=== PATIENT | female | born 1955 | race Two or more races ===

== ENCOUNTER → 2017-05-07 | Outpatient (CLI) | payer BC ==
[2017-05-07 13:49] LABS: Anion Gap 7 mmol/L; Blood Urea Nitrogen 17 mg/dL (7-17); Calcium 9.6 mg/dL (8.4-10.2); Carbon Dioxide 30 mmol/L (22-30); Chloride 104 mmol/L (98-107); Glucose 95 mg/dL (74-99); Non-African American GFR(MDRD) >60 (>60 ml/min/1.73 sqM); Potassium 4.2 mmol/L (3.5-5.1); Sodium 141 mmol/L (137-145)
== END | disposition home or self-care (01) ==
LOC: LABWHC1 13:18
PROVIDERS: ATTEND Internal Medicine Interventional Cardiology
DX: I10 Essential (primary) hypertension (principal)
CPT/HCPCS: 36415; 80048

== ENCOUNTER → 2018-03-17 | Outpatient (CLI) | payer BC ==
[2018-03-17 14:01] LABS: Basophils % (A) 0 %; Eosinophils # (A) 0.1 k/uL (0-0.7); Eosinophils % (A) 1 %; HCT 45.2 % (34.0-46.0); HGB 15.2 gm/dL (11.4-16.0); Lymphocytes # (A) 1.8 k/uL (1.0-4.8); Lymphocytes % (A) 26 %; MCH 30.1 pg (25.0-35.0); MCHC 33.5 g/dL (31.0-37.0); MCV 89.8 fL (80.0-100.0); Mean Platelet Volume 6.9; Monocytes # (A) 0.3 k/uL (0-1.0); Monocytes % (A) 5 %; Neutrophils # (A) 4.6 k/uL (1.3-7.7); Neutrophils % (A) 67 %; Platelet Count 304 k/uL (150-450); RBC 5.04 m/uL (3.80-5.40); RDW 12.3 % (11.5-15.5); WBC 6.9 k/uL (3.8-10.6)
[2018-03-17 14:16] LABS: ALT 38 U/L (9-52); AST 32 U/L (14-36); Alkaline Phosphatase 120 U/L (38-126); Anion Gap 11 mmol/L; Blood Urea Nitrogen 12 mg/dL (7-17); Calcium 9.8 mg/dL (8.4-10.2); Carbon Dioxide 31 mmol/L (22-30); Chloride 100 mmol/L (98-107); Glucose 101 mg/dL (74-99); Potassium 4.1 mmol/L (3.5-5.1); Sodium 142 mmol/L (137-145); Total Bilirubin 0.5 mg/dL (0.2-1.3); Total Protein 6.9 g/dL (6.3-8.2)
[2018-03-17 14:31] LABS: T4, Free (Free Thyroxine) 1.16 ng/dL (0.78-2.19)
--- NOTE | 2018-03-17 14:37 | XR ---
EXAMINATION TYPE: XR chest 2V DATE OF EXAM: 03/17/2018 COMPARISON: NONE HISTORY: Allergic reaction, lung mass, hypertension, hives TECHNIQUE: Frontal and lateral views of the chest are obtained. FINDINGS: Prominent lung volumes may be indicative of COPD. There is a wedge compression deformity o f the midthoracic spine with loss of height anteriorly of greater than 75%, there may be minimal retr opulsion. The aorta is dense. There is no airspace disease, pneumothorax, or pleural effusion. Retroc ardiac density with central lucency is present. Cardiac mediastinal silhouette, pulmonary vascularity and corwin within normal limits accounting for rotation. IMPRESSION: No acute cardiopulmonary disease. Hiatal hernia. Thoracic compression fracture of indete rminate age. Consider thoracic MRI or CT.
[2018-03-17 16:38] LABS: Erythrocyte Sedimentation Rate 9 mm/hr (0-20)
[2018-03-17 19:46] LABS: Parathyroid Hormone Intact 47.1 pg/mL (14.0-72.0)
[2018-03-17 20:07] LABS: Thyroid Peroxidase Antibodies <28.0 U/mL (0.0-60.0)
[2018-03-18 12:28] LABS: White-Faced Hornet IgE <0.35 kU/L (<0.35); Yellow Jacket IgE Class CLASS 0
[2018-03-18 12:30] LABS: Paper Wasp IgE <0.35 kU/L (<0.35); Paper Wasp IgE Class CLASS 0; Yellow Hornet IgE <0.35 kU/L (<0.35)
[2018-03-19 21:39] LABS: C1 Esterase Inhibitor Fnc Assy > 86 % (> 67)
[2018-03-20 17:08] LABS: C1 Esterase Inhibitor, Protein 56 mg/dL (21-39)
== END ==
LOC: LABWHC1 13:07
PROVIDERS: ATTEND Allergy & Immunology
DX: R91.8 Other nonspecific abnormal finding of lung field (principal); E07.9 Disorder of thyroid, unspecified; M35.9 Systemic involvement of connective tissue, unspecified; R53.83 Other fatigue; K44.9 Diaphragmatic hernia without obstruction or gangrene; M48.54XA Collapsed vertebra, not elsewhere classified, thoracic region, initial encounter for fracture
CPT/HCPCS: 36415; 71046; 80053; 82785; 83970; 84439; 84443; 85025; 85652; 86003; 86038; 86160; 86161; 86162; 86376; 86800

== ENCOUNTER → 2018-12-15 | Outpatient (CLI) | payer BC ==
--- NOTE | 2018-12-18 15:57 | MM ---
Reason for exam: additional evaluation requested from prior study. Last mammogram was performed 2 years and 1 month ago. History: Patient has history of breast cancer at age 44. Reduction of the left breast, 2000. Mastectomy of the right breast, 1999. TRAM Reconstruction of the right breast, 1999. Physical Findings: Nurse Summary: a 0.25 cm palpable lump at the left nipple. MG Diagnostic Mammo LT w CAD CC and MLO view(s) were taken of the left breast. Prior study comparison: November 03, 2016, left breast MG diagnostic mammo LT w CAD. July 07, 2016, left breast MG 3d diag mammo w/cad LT. There are benign-appearing regional round left breast anterior calcifications. No discrete abnormality. These results were verbally communicated with the patient and result sheet given to the patient on 12/15/18. ASSESSMENT: Incomplete: need additional imaging evaluation, BI-RAD 0 RECOMMENDATION: Ultrasound of the left breast. Palpable abnormality.
--- NOTE | 2018-12-18 16:01 | USB ---
History: Patient has history of breast cancer at age 44. Reduction of the left breast, 2000. Mastectomy of the right breast, 2000. TRAM Reconstruction of the right breast, 2000. US Breast Limited LT Left limited breast ultrasound including focal area of concern, retroareolar and axilla demonstrates no cystic or solid lesion seen at the palpable on the nipple. A 0.4 x 0.2 cm oval mixed lesion is seen at 5 o'clock. These results were verbally communicated with the patient and result sheet given to the patient on 12/15/18. ASSESSMENT: Probably benign, BI-RAD 3 RECOMMENDATION: Ultrasound of the left breast in 6 months.
== END ==
LOC: RADMAMWWP 12:55
PROVIDERS: ATTEND Family Medicine
DX: Z85.3 Personal history of malignant neoplasm of breast (principal)
CPT/HCPCS: 77065

== ENCOUNTER → 2019-03-23 | Outpatient (CLI) | payer BC ==
--- NOTE | 2019-03-23 18:19 | CT ---
EXAMINATION TYPE: CT soft tissue neck w con DATE OF EXAM: 03/23/2019 COMPARISON: None HISTORY: Right sided mass under tongue behind jaw bone CT DLP: 291.6 mGycm CONTRAST: Patient injected with 100 mL of Isovue 300. TECHNIQUE: Axial images at 3 mm thick sections. Reconstructed images in the coronal plane and sagitt al plane are reviewed. FINDINGS: Limited CT sections are obtained the lung apices. The lung apices appear clear. CT neck: The torus tubarius and fossa of Rosenmuller are normal. Senior Recruiter spaces are normal. Para nasal sinuses and mastoid air cells are clear. Note is made a left septal deviation. Parotid glands appear normal and symmetrical. Submandibular glands, are normal. Parapharyngeal spac es are normal. No suspicious adenopathy is evident. The hypopharynx appears within normal limits. Vocal cord level appear symmetrical. Subglottic airway is normal. Thyroid as visualized is normal. Osseous structures are normal. Dental amalgam causes beam hardening artifact through the level of the mandible and maxilla. IMPRESSIONS: 1. No suspicious masslike areas identified to account for the right-sided mass under the tongue and j aw bone. Clinical management is recommended.
== END | disposition home or self-care (01) ==
LOC: RADCTMAIN 09:29
PROVIDERS: ATTEND Otolaryngology
DX: R22.1 Localized swelling, mass and lump, neck (principal)
CPT/HCPCS: 70491; Q9967

== ENCOUNTER → 2019-08-25 | Outpatient (CLI) | payer BC | END | disposition home or self-care (01) | LOC: LABWHC1 16:30 | PROVIDERS: ATTEND Otolaryngology | DX: E83.52 Hypercalcemia (principal) | CPT/HCPCS: 36415; 82330 ==

== ENCOUNTER → 2019-11-18 | Outpatient (CLI) | payer BC ==
--- NOTE | 2019-11-18 14:25 | US ---
EXAMINATION TYPE: US carotid duplex BILAT DATE OF EXAM: 11/18/2019 COMPARISON: NONE CLINICAL HISTORY: R22.1 PULSATILE NECK MASS. Pulsatile mass right clavicle EXAM MEASUREMENTS: RIGHT: Peak Systolic Velocity (PSV) cm/sec ----- Right CCA: 89.0 ----- Right ICA: 89.0 ----- Right ECA: 102 ICA/CCA ratio: 1.0 RIGHT: End Diastole cm/sec ----- Right CCA: 24.5 ----- Right ICA: 26.5 ----- Right ECA: 12.2 LEFT: Peak Systolic Velocity (PSV) cm/sec ----- Left CCA: 95.8 ----- Left ICA: 152 ----- Left ECA: 92.7 ICA/CCA ratio: 1.6 LEFT: End Diastole cm/sec ----- Left CCA: 21.1 ----- Left ICA: 39.4 ----- Left ECA: 11.5 VERTEBRALS (direction of flow): Right Vertebral: Antegrade Left Vertebral: Antegrade Rhythm: Normal No significant stenosis seen, left ICA tortuous There is some mild intimal thickening to the right carotid system. Mild intimal thickening is present on the left. There is tortuosity causing turbulent flow. Flow-limiting stenosis however is not ident ified. IMPRESSION: 1. There is intimal thickening without significant flow-limiting stenosis. 2. There is elevation of the left internal carotid artery which may be related to the tortuosity. Criteria for Assigning % of Stenosis / Diameter reduction (Estimation based on the indirect measurements of the internal carotid artery velocities (ICA PSV). 1. Normal (no stenosis)=ICA PSV < 125 cm/s: ratio < 2.0: ICA EDV<40 cm/s. 2. Less than 50% stenosis=ICA PSV < 125 cm/s: ratio < 2.0: ICA EDV<40 cm/s. 3. 50 to 69% stenosis=ICA PSV of 125 to 230 cm/s: ration 2.0 ? 4.0: ICA EDV 40-100 cm/s. 4. Greater than 70% stenosis to near occlusion= ICA PSV > 230 cm/s: ratio > 4.0: ICA EDV > 100 cm/s. 5. Near occlusion= ICA PSV velocities may be low or undetectable: variable ratio and ICA EDV. 6. Total occlusion=unable to detect flow.
--- NOTE | 2019-11-18 14:29 | US ---
EXAMINATION TYPE: US thyroid st tissue head/neck DATE OF EXAM: 11/18/2019 COMPARISON: NONE CLINICAL HISTORY: R22.1 RULSATILE NECK MASS. Pt states pulsatile mass at right clavicle At pt's right clavicle where pt has pulsatile mass, the area appears to be the bifurcation of the r ight CCA and right subclavian artery IMPRESSION: No aneurysm or mass identified.
[2019-11-18 14:58] LABS: ALT 17 U/L (4-34); AST 29 U/L (14-36); African American GFR (CKD) >90 (>60 ml/min/1.73 sqM); Albumin 3.9 g/dL (3.5-5.0); Alkaline Phosphatase 67 U/L (38-126); Anion Gap 5 mmol/L; Blood Urea Nitrogen 12 mg/dL (7-17); Calcium 9.3 mg/dL (8.4-10.2); Carbon Dioxide 30 mmol/L (22-30); Chloride 104 mmol/L (98-107); Glucose 101 mg/dL (74-99); Non-African American GFR(CKD) >90 (>60 ml/min/1.73 sqM); Potassium 4.2 mmol/L (3.5-5.1); Sodium 139 mmol/L (137-145); Total Bilirubin 0.6 mg/dL (0.2-1.3); Total Protein 6.4 g/dL (6.3-8.2)
== END ==
LOC: RADUSWWP 13:29
PROVIDERS: ATTEND Internal Medicine Endocrinology, Diabetes & Metabolism
DX: R93.89 Abnormal findings on diagnostic imaging of other specified body structures (principal); R22.1 Localized swelling, mass and lump, neck
CPT/HCPCS: 36415; 76536; 80053; 82306; 83970; 84443; 93880

== ENCOUNTER → 2019-11-25 | Outpatient (CLI) | payer BC ==
[2019-11-25 18:02] LABS: Basophils % (A) 0 %; Eosinophils # (A) 0.1 k/uL (0-0.7); Eosinophils % (A) 2 %; HCT 45.4 % (34.0-46.0); Lymphocytes # (A) 1.9 k/uL (1.0-4.8); Lymphocytes % (A) 41 %; MCHC 33.1 g/dL (31.0-37.0); MCV 90.8 fL (80.0-100.0); Mean Platelet Volume 8.2; Monocytes # (A) 0.2 k/uL (0-1.0); Monocytes % (A) 5 %; Neutrophils # (A) 2.3 k/uL (1.3-7.7); Neutrophils % (A) 51 %; Platelet Count 228 k/uL (150-450); RDW 13.2 % (11.5-15.5); WBC 4.6 k/uL (3.8-10.6)
[2019-11-25 22:30] LABS: Erythrocyte Sedimentation Rate 2 mm/hr (0-20)
[2019-11-25 23:17] LABS: Protein, Total 6.5 g/dL (6.2-8.2)
[2019-11-25 23:20] LABS: African American GFR (CKD) 90.3 (60.0-200.0); Non-African American GFR(CKD) 77.9 (60.0-200.0)
[2019-11-26 00:14] LABS: Hemoglobin A1C 6.1 % (4.0-6.0)
== END | disposition home or self-care (01) ==
LOC: LABWHC1 16:42
PROVIDERS: ATTEND Physician Assistant
DX: G62.9 Polyneuropathy, unspecified (principal)
CPT/HCPCS: 36415; 82542; 82565; 82607; 83036; 84165; 84630; 85025; 85652; 86038; 86255; 86334; 86780

== ENCOUNTER → 2019-11-27 | Outpatient (CLI) | payer BC | END | disposition home or self-care (01) | LOC: LABMAIN 12:24 | PROVIDERS: ATTEND Psychiatry & Neurology Neurology | DX: Z53.9 Procedure and treatment not carried out, unspecified reason (principal) ==

== ENCOUNTER → 2019-12-29 | Outpatient (CLI) | payer BC ==
--- NOTE | 2019-12-29 14:49 | MM ---
Reason for exam: additional evaluation requested from prior study. Last mammogram was performed 1 year ago. History: Patient has history of breast cancer at age 44. Reduction of the left breast, 2000. Mastectomy of the right breast, 1999. TRAM Reconstruction of the right breast, 1999. Physical Findings: Nurse did not find any significant physical abnormalities on exam. MG Diagnostic Mammo LT w CAD CC and MLO view(s) were taken of the left breast. Prior study comparison: December 15, 2018, left breast MG diagnostic mammo LT w CAD. November 03, 2016, left breast MG diagnostic mammo LT w CAD. The breast tissue is heterogeneously dense. This may lower the sensitivity of mammography. No suspicious abnormality. No significant new findings when compared with previous films. These results were verbally communicated with the patient and result sheet given to the patient on 12/29/19. ASSESSMENT: Incomplete: need additional imaging evaluation, BI-RAD 0 RECOMMENDATION: Ultrasound of the left breast. (at 5 o'clock as recommended on the prior ultrasound)
--- NOTE | 2019-12-29 14:51 | USB ---
Reason for exam: additional evaluation requested from abnormal screening. History: Patient has history of breast cancer at age 44. Reduction of the left breast, 2000. Mastectomy of the right breast, 2000. TRAM Reconstruction of the right breast, 2000. US Breast Limited LT Left limited breast ultrasound including focal area of concern, retroareolar and axilla demonstrates no cystic or solid lesion seen. The previous cluster of cysts at 5 o'clock has resolved. No cystic or solid mass seen. Mild ductal ectasia. These results were verbally communicated with the patient and result sheet given to the patient on 12/29/19. ASSESSMENT: Negative, BI-RAD 1 RECOMMENDATION: Routine screening mammogram of the left breast in 1 year.
== END | disposition home or self-care (01) ==
LOC: RADMAMWWP 13:10
PROVIDERS: ATTEND Family Medicine
DX: N64.9 Disorder of breast, unspecified (principal); R92.8 Other abnormal and inconclusive findings on diagnostic imaging of breast
CPT/HCPCS: 77065

== ENCOUNTER → 2020-07-02 | Outpatient (CLI) | payer MEDICARE ==
[2020-07-03 06:26] LABS: Anti-Smith Ab Interp NEGATIVE (NEGATIVE); Cyclic Citrull Pep IgG Unit <0.5 U/mL; Cyclic Citrullinated Pep IgG NEGATIVE (NEGATIVE); DNA Double-Stranded NEGATIVE (NEGATIVE); JO-1 IgG Antibody <0.2 AI; Scleroderma SC-70 Ab <0.2 AI
== END | disposition home or self-care (01) ==
LOC: LABWHC1 14:41
PROVIDERS: ATTEND Nurse Practitioner Family
DX: M25.50 Pain in unspecified joint (principal)
CPT/HCPCS: 36415; 83516; 86038; 86200; 86225; 86235

== ENCOUNTER → 2020-07-25 | Outpatient (CLI) | payer MEDICARE ==
--- NOTE | 2020-07-25 17:35 | US ---
EXAMINATION TYPE: US kidneys/renal and bladder DATE OF EXAM: 07/25/2020 COMPARISON: NONE CLINICAL HISTORY: N28 Other disorders of kidney and ureter. Pt states possible left renal cyst visual ized on outside MRI EXAM MEASUREMENTS: Right Kidney: 10.2 x 4.3 x 4.3 cm Left Kidney: 9.8 x 4.4 x 4.4 cm Right Kidney: Possible parapelvic cyst medial= 2.6 x 1.5 x 1.9 cm Left Kidney: Cyst lower pole= 1.7 x 1.7 x 1.4 cm. Possible parapelvic cyst medial= 2.2 x 1.3 x 2.1 cm Bladder: wnl Bilateral Jets seen: No IMPRESSION: 1. Cyst within the inferior pole left kidney. 2. Peripelvic cysts bilateral kidneys.
== END | disposition home or self-care (01) ==
LOC: RADUSWWP 15:31
PROVIDERS: ATTEND Psychiatry & Neurology Neurology
DX: N28.1 Cyst of kidney, acquired (principal)
CPT/HCPCS: 76770

== ENCOUNTER → 2021-04-08 | Outpatient (CLI) | payer MEDICARE ==
--- NOTE | 2021-04-08 12:00 | BD ---
EXAMINATION TYPE: Axial Bone Density DATE OF EXAM: 04/08/2021 COMPARISON: 09/14/2014 CLINICAL HISTORY: Height: 60 IN Weight: 145 LBS RISK FACTORS HISTORY OF: Family History of Osteoporosis: YES GRANDMOTHER Active: LIMITED Diet low in dairy products/other sources of calcium: YES Postmenopausal woman: PARTIAL HYST AGE 51 Take estrogen and/or progesterone medications: YES How lon WEEKS MEDICATIONS: Additional Medications: VIT D, ATENOLOL, DHEA SR, TESTOSTERONE CREAM, ESTRIOL, PROGESTERONE, ESTRADIO L CREAM, BACLOFEN, ALPRAZOLAM, IBUPROFEN,PERCOCET, ZYRTEC, MONTELUKAST, Additional History: BREAST CANCER EXAM MEASUREMENTS: Bone mineral densitometry was performed using the [employer] System. Bone mineral density as measured about the Lumbar spine is: ----- L1-L4(G/cm2): 1.130 T Score Values are as follows: ----- L2: -0.9 ----- L3: 0.0 ----- L4: 0.2 ----- L1-L4: -0.4 Bone mineral density has: Decreased -3.6% since study of: 09/14/2014 Bone mineral density about the R hip (g/cm2): 0.791 Bone mineral density about the L hip (g/cm2): 0.798 T Score values are as follows: -----R Neck: -1.8 -----L Neck: -1.7 -----R Total: -0.8 -----L Total: -1.0 Bone mineral density has: Decreased -8.3% since study of: 09/14/2014 IMPRESSION: Osteopenia (T Score between -2.5 and -1). There is slightly increased risk of fracture and the patient may be considered for treatment. Re-Screen 2-5 years. NOTE: T-SCORE=SD OF THE YOUNG ADULT MEAN.
== END | disposition home or self-care (01) ==
LOC: RADBDWWP 10:34
PROVIDERS: ATTEND Family Medicine
DX: M85.80 Other specified disorders of bone density and structure, unspecified site (principal)
CPT/HCPCS: 77080

== ENCOUNTER → 2021-04-19 | Outpatient (CLI) | payer MEDICARE ==
--- NOTE | 2021-04-23 08:21 | MM ---
Reason for exam: screening (asymptomatic). Last mammogram was performed 1 year and 4 months ago. History: Patient has history of breast cancer at age 44. Reduction of the left breast, 2000. Mastectomy of the right breast, 1999. TRAM Reconstruction of the right breast, 1999. Taking estrogen for 1 month. Taking progesterone for 1 month. Taking other hormone for 1 month. Physical Findings: A clinical breast exam by your physician is recommended on an annual basis and results should be correlated with mammographic findings. MG Screen Rickey Unilateral W/Cad CC, MLO, and XCCL view(s) were taken of the left breast. Prior study comparison: December 29, 2019, left breast MG diagnostic mammo LT w CAD. December 15, 2018, left breast MG diagnostic mammo LT w CAD. The breast tissue is heterogeneously dense. This may lower the sensitivity of mammography. Left superior density at posterior depth on MLO. This finding is changed when compared with previous exams. ASSESSMENT: Incomplete: need additional imaging evaluation, BI-RAD 0 RECOMMENDATION: Special view mammogram of the left breast. If lesion persists on supplemental views, image directed ultrasound is recommended. [facility] will attempt to contact patient to return for supplemental views and ultrasound if indicated.
== END | disposition home or self-care (01) ==
LOC: RADMAMWWP 15:19
PROVIDERS: ATTEND Family Medicine
DX: Z12.31 Encounter for screening mammogram for malignant neoplasm of breast (principal); Z85.3 Personal history of malignant neoplasm of breast; Z90.11 Acquired absence of right breast and nipple
CPT/HCPCS: 77067

== ENCOUNTER → 2021-05-02 | Outpatient (CLI) | payer MEDICARE ==
--- NOTE | 2021-05-02 14:36 | MM ---
Reason for exam: additional evaluation requested from abnormal screening. Last mammogram was performed less than 1 month ago. History: Patient has history of breast cancer at age 44. Reduction of the left breast, 1999. Mastectomy of the right breast, 1999. TRAM Reconstruction of the right breast, 1999. Taking estrogen for 2 months. Taking progesterone for 2 months. Taking other hormone for 1 month. Physical Findings: Nurse did not find any significant physical abnormalities on exam. MG Work Up Mamm w CAD LT Spot compression XCCL, spot compression MLO, and ML view(s) were taken of the left breast. Prior study comparison: April 19, 2021, bilateral MG screen amarjit unilateral w/cad. December 29, 2019, left breast MG diagnostic mammo LT w CAD. The breast tissue is heterogeneously dense. This may lower the sensitivity of mammography. Left density superior posterior depth most likely benign asymmetry/overlap breast tissue. These results were verbally communicated with the patient and result sheet given to the patient on 05/02/21. ASSESSMENT: Benign, BI-RAD 2 RECOMMENDATION: Return to routine screening mammogram schedule for both breasts.
== END | disposition home or self-care (01) ==
LOC: RADMAMWWP 13:32
PROVIDERS: ATTEND Family Medicine
DX: N64.89 Other specified disorders of breast (principal); Z85.3 Personal history of malignant neoplasm of breast; Z90.11 Acquired absence of right breast and nipple
CPT/HCPCS: 77065

== ENCOUNTER → 2021-05-03 | Outpatient (CLI) | payer MEDICARE ==
[2021-05-04 20:23] LABS: Urine Alcohol Negative (Negative); Urine Barbiturate Negative (Negative); Urine Cocaine Negative (Negative); Urine Methadone Negative (Negative); Urine Opiates Positive (Negative); Urine Phencyclidine Negative (Negative)
== END | disposition home or self-care (01) ==
LOC: LABWHC1 14:05
PROVIDERS: ATTEND Physician Assistant
DX: Z79.891 Long term (current) use of opiate analgesic (principal)
CPT/HCPCS: 80306

== ENCOUNTER → 2022-11-03 | Outpatient (CLI) | payer MEDICARE ==
--- NOTE | 2022-11-04 10:59 | MM ---
Reason for Exam: Screening (asymptomatic). Last mammogram was performed 1 year(s) and 6 month(s) ago. Patient History: Menarche at age 13. First Full-Term at age 24. Hysterectomy at age 52. Breast cancer, age 44. Currently using Estrogen, for 2 months. Currently using Progesterone, for 2 months. 1999, Reduction on the Left side. 1999, Mastectomy on the Right side. 1999, TRAM Reconstruction on the right side. Prior Study Comparison: 12/29/2019 Left Diagnostic Mammogram, [facility]. 04/19/2021 Bilateral Screening Mammogram, [facility]. 05/02/2021 Left Diagnostic Mammogram, [facility]. Tissue Density: Left: There are scattered fibroglandular densities. Findings: Subareolar focal asymmetry remains unchanged. There is no suspicious group of microcalcifications or new suspicious mass in either breast. Overall Assessment: Negative, BI-RAD 1 Management: Screening Mammogram of the left breast in 1 year. 1. Patient should continue monthly self breast exams. 2. A clinical breast exam by your physician is recommended on an annual basis. 3. This exam should not preclude additional follow-up of suspicious palpable abnormalities. Electronically signed and approved by: Xiomy Bassett M.D. Radiologist
== END | disposition home or self-care (01) ==
LOC: RADMAMWWP 13:16
PROVIDERS: ATTEND Family Medicine
DX: Z12.31 Encounter for screening mammogram for malignant neoplasm of breast (principal); Z85.3 Personal history of malignant neoplasm of breast; Z90.11 Acquired absence of right breast and nipple
CPT/HCPCS: 77067

== ENCOUNTER → 2023-02-16 | Outpatient (CLI) | payer MEDICARE | END | disposition home or self-care (01) | LOC: RADMAMWWP 13:53 | PROVIDERS: ATTEND Family Medicine | DX: Z53.9 Procedure and treatment not carried out, unspecified reason (principal) ==

== ENCOUNTER 2023-06-29 10:09 | Day surgery (SDC) | payer MEDICARE ==
[2023-06-01 13:28] VITALS: BMI 29.2
[~2023-06-29 10:09] MED LIST: ALPRAZolam 0.25 MG TAB PO PRN; ALPRAZolam 0.5 MG TAB PO PRN; ASPIRIN 325 MG TAB PO STA; NITROGLYCERIN SL TABS 0.4 MG TAB SUBLINGUAL PRN; SODIUM CHLORIDE 0.9% 1,000 ML in EMPTY BAG 1 BAG IV SCH
[2023-06-29 10:36] VITALS: TEMP 97.5
[2023-06-29] MEDS ORDERED: SODIUM CHLORIDE 0.9% 1,000 ML IV ONE (10:45)
[2023-06-29] MEDS ORDERED: VERAPAMIL 2.5 MG/ML 2 ML AMP ONE ×2 (11:29→12:08)
[2023-06-29] MEDS ORDERED: fentaNYL (PF) 50 MCG/ML 2 ML AMP ONE (11:43)
[2023-06-29] MEDS ORDERED: LIDOCAINE 1% INJ 10MG/ML (5 ML VIAL-PF) SQ ONE (11:51)
[2023-06-29] MEDS: MIDAZOLAM 2 MG/2 ML VIAL IVP ONE ×2 (11:52→12:05)
[2023-06-29] MEDS: VERAPAMIL SYRINGE (5 MG/10 ML) INTRAARTER ONE ×2 (11:52→12:05)
[2023-06-29] MEDS: fentaNYL (PF) 50 MCG/ML 2 ML AMP IVP ONE ×2 (11:52→12:13)
[2023-06-29] MEDS ORDERED: HEPARIN SODIUM 1,000 UN/ML (10ML VL) ONE (11:54)
[2023-06-29] MEDS ORDERED: HEPARIN SODIUM 1,000 UN/ML (10ML VL) IV ONE (11:55)
[2023-06-29] MEDS ORDERED: MIDAZOLAM 2 MG/2 ML VIAL IVP ONE (12:13)
[2023-06-29] MEDS ORDERED: LIDOCAINE 1% INJ 10MG/ML (20 ML MDV) ONE (12:15)
[2023-06-29] MEDS ORDERED: LIDOCAINE 1% INJ 10MG/ML (20 ML MDV) SQ ONE (12:17)
[2023-06-29] MEDS ORDERED: IOPAMIDOL-370 100ML BTL INJ ONE (12:20)
[2023-06-29] MEDS ORDERED: ACETAMINOPHEN TAB 500 MG TAB PO ONE (15:24)
--- NOTE | 2023-06-29 15:49 | P.CARDCATH ---
Description of Procedure: PROCEDURES PERFORMED: Left heart catheterization, bilateral coronary angiography, ultrasound guided arterial access INDICATION: Dyspnea on exertion, abnormal CT with coronary artery calcification CONSENT:I have discussed the risks, benefits and alternative therapies for the above-mentioned procedure and for both sedation/analgesia as well as necessary blood product administration, if indicated, as they pertain to this patient. The patient has indicated understanding and acceptance of the risks and procedures discussed. PROCEDURE: After the risks, benefits and alternatives of the above mentioned procedure explained in detail with the patient, informed consent was obtained. Patient was taken to the catheterization lab and prepped and draped in usual fashion. Ultrasound guidance was used to assess for arterial access. 1% lidocaine was used to anesthetize the right radial artery. A 6-Lao sheath was placed in the right radial artery using modified Seldinger technique and ultrasound guidance. Right coronary angiography was performed with a 5-Lao JR5 catheter in various views. A 5-Lao FR5 catheter was inserted into the left ventricle and pressure measurements were obtained. Patient had significant vasospasm of the right radial artery and short aorta with difficulty engaging the left main from a radial approach. Multiple attempts were made with FL 3, FL 3-1/2 however continued to have spasm and therefore femoral approach was recommended. A 6-Lao sheath was placed in the right femoral artery using modified Seldinger technique, ultrasound-guided axis. Next, left coronary angiography was performed with a 6-Lao FL 4 catheter. The right radial sheath was removed and a TR band was placed with hemostasis achieved. The patient tolerated the procedure well. Patient was transported back to the post catheterization holding area in stable condition. Conscious Sedation: Patient was monitored under the direct supervision of myself for conscious sedation using Versed and fentanyl for a total duration of 32 minutes HEMODYNAMICS: Aorta: 156/82 LV: 151/2, LVEDP 3 SELECTIVE CORONARY ARTERIOGRAPHY: LEFT MAIN: The left main is a large caliber vessel which bifurcates into the LAD and circumflex. There is no significant stenosis. LEFT ANTERIOR DESCENDING CORONARY ARTERY: LAD is a large caliber vessel which wraps around to the apex. There is a proximal LAD 30% stenosis at the level of a moderate caliber diagonal 1 branch. Diagonal 1 branch has a 30-40% stenosis. Otherwise there are mild luminal irregularities of the LAD. LEFT CIRCUMFLEX CORONARY ARTERY: Left circumflex is a moderate caliber vessel without significant stenosis. RIGHT CORONARY ARTERY: The right coronary artery is a large caliber vessel which gives off a PDA and PLV branch and is the dominant vessel. There is a proximal 30% RCA stenosis and otherwise mild luminal irregularities. FINAL IMPRESSION: 1. CAD as described above including 30% RCA, 30% proximal LAD, 30-40% diagonal 1 stenosis 2. Low left sided filling pressures PLAN: 1. Aggressive risk factor modification per most recent ACC/AHA guidelines. 2. Follow-up in the office in 1-2 weeks.
[2023-06-29 18:25] VITALS: BP 137/63; PULSE 74; RESP 12
== END 2023-06-29 18:15 | disposition home or self-care (01) ==
LOC: CATHCVL 10:09
PROVIDERS: ATTEND Internal Medicine
DX: I25.10 Atherosclerotic heart disease of native coronary artery without angina pectoris (principal); I10 Essential (primary) hypertension; E78.5 Hyperlipidemia, unspecified; Z79.899 Other long term (current) drug therapy; Z88.2 Allergy status to sulfonamides
CPT/HCPCS: 93458; 76937; C1760; C1769 ×2; C1894 ×2; C1887; J2250; J2001 ×2; J3010; J1644; Q9967

== ENCOUNTER → 2023-11-25 | Outpatient (CLI) | payer MEDICARE ==
--- NOTE | 2023-11-25 14:38 | MM ---
Reason for Exam: Screening (asymptomatic). Last screening mammogram was performed 12 month(s) ago. Patient History: Menarche at age 13. First Full-Term at age 24. Hysterectomy at age 52. Breast cancer, right, age 44. Patient used Estrogen for 1 year. Patient used Progesterone for 1 year. 1999, Reduction on the Left side. 1999, Mastectomy on the Right side. 1999, TRAM Reconstruction on the right side. Prior Study Comparison: 04/19/2021 Bilateral Screening Mammogram, [facility]. 05/02/2021 Left Diagnostic Mammogram, [facility]. 11/03/2022 Left MG 3D scr amarjit unilateral w/cad., [facility]. Tissue Density: Left: There are scattered fibroglandular densities. Findings: Analyzed By CAD. There is no suspicious group of microcalcifications or new suspicious mass. Overall Assessment: Negative, BI-RAD 1 Management: Screening Mammogram of both breasts in [address] [facility] will attempt to contact patient to return for supplemental views and ultrasound if indicated. Patient should continue monthly self-breast exams. A clinical breast exam by your physician is recommended on an annual basis. This exam should not preclude additional follow-up of suspicious palpable abnormalities. Note on Carla scores and lifetime risk: 1. A Carla score greater than 3% is considered moderate risk. If this is the case, consider specialist referral to assess eligibility for a risk reducing agent. 2. If overall lifetime risk for the development of breast cancer is 20% or higher, the patient may qualify for future screening with alternating mammogram and breast MRI. Electronically signed and approved by: Cirilo Marte DO
== END | disposition home or self-care (01) ==
LOC: RADMAMWWP 13:32
PROVIDERS: ATTEND Family Medicine
DX: Z12.31 Encounter for screening mammogram for malignant neoplasm of breast (principal); Z85.3 Personal history of malignant neoplasm of breast; Z90.11 Acquired absence of right breast and nipple
CPT/HCPCS: 77067

== ENCOUNTER → 2024-02-12 | Outpatient (CLI) | payer MEDICARE ==
--- NOTE | 2024-02-13 19:04 | MR ---
EXAMINATION TYPE: MR lumbar spine wo con DATE OF EXAM: 02/12/2024 4:13 PM CLINICAL INDICATION:Female, 68 years old with history of [id number] LOW BACK PAIN, UNSPECIFIED; PHH, Low b ack pain into Right side, history of right breast cancer. COMPARISON: None TECHNIQUE: Multi planar, multi sequence imaging was performed utilizing: T1-weighted, T2-weighted, a nd turbo inversion recovery imaging of the lumbar spine. IV Contrast: cc . (None if empty) FINDINGS: Alignment: The lumbar vertebral bodies have preserved heights and alignment. Cord: The conus medullaris and the distal spinal cord appear unremarkable with regards to their signa l intensity and morphology. Bones/Discs: Minimal degeneration changes throughout the spine with osteophyte formation and facet justin int arthropathy. Intervertebral disc signal is maintained. T12-L1: No evidence of significant spinal canal stenosis or neural foraminal stenosis. L1-L2: No evidence of significant spinal canal stenosis or neural foraminal stenosis. L2-L3: No evidence of significant spinal canal stenosis or neural foraminal stenosis. L3-L4: No evidence of significant spinal canal stenosis or neural foraminal stenosis. L4-L5: No evidence of significant spinal canal stenosis or neural foraminal stenosis. L5-S1: The disc is rounded posterior morphology without significant spinal canal stenosis. Facet join t arthropathy with mild bilateral neural foraminal stenosis. No significant spinal canal or neural foraminal stenosis in the remainder of the visualized levels. Other findings: None. IMPRESSION: 1. No definitive evidence of disc herniation or significant spinal canal stenosis. 2. Minimal disc degeneration with associated osteoarthritic changes.
== END | disposition home or self-care (01) ==
LOC: RADMRIMAIN 15:19
PROVIDERS: ATTEND Psychiatry & Neurology Neurology
DX: M47.816 Spondylosis without myelopathy or radiculopathy, lumbar region (principal); M51.36 Other intervertebral disc degeneration, lumbar region; Z85.3 Personal history of malignant neoplasm of breast; Z87.59 Personal history of other complications of pregnancy, childbirth and the puerperium
CPT/HCPCS: 72148

== ENCOUNTER → 2025-01-24 | Outpatient (CLI) | payer MEDICARE | END | disposition home or self-care (01) | LOC: RADMAMWWP 15:10 | PROVIDERS: ATTEND Family Medicine | DX: Z53.9 Procedure and treatment not carried out, unspecified reason (principal) ==